=== PATIENT | male | born 1990 | race Caucasian/White ===

== ENCOUNTER 2017-02-01 00:11 | Emergency (ER) | payer MEDICAID ==
[~2017-02-01] VITALS: Ht 180.3 cm; Wt 73.0 kg
[2017-02-01 09:02] VITALS: BP 128/93
== END 2017-02-01 09:45 | disposition home or self-care (01) ==
LOC: ER 00:22
DX: T51.0X1A Toxic effect of ethanol, accidental (unintentional), initial encounter (principal); G92 Toxic encephalopathy; F17.210 Nicotine dependence, cigarettes, uncomplicated; Y90.9 Presence of alcohol in blood, level not specified; Z88.0 Allergy status to penicillin; Y92.018 Other place in single-family (private) house as the place of occurrence of the external cause
CPT/HCPCS: 99283